=== PATIENT | female | born 1945 | race Caucasian/White ===

== ENCOUNTER → 2016-12-11 | Day surgery (SDC) | payer MEDICARE, OTHER ==
[~2016-12-11] MED LIST: ALLEGRA180 MG PO; ALLEGRA60 MG PO; ASPIRIN81 M1 PO; ATIVAN PO; CELEXA20 MG PO; CIPRO250 M1; CITALOPRAM HBR10 MG PO; COZAAR PO; ESZOPICLONE3 MG PO; FENOFIBRATE145 M1 PO; FERRO-TIME325 MG PO; HYDROCHLOROTHIA25 MG PO; LEVAQUIN750 MG PO; LIPITOR PO; LORTAB 5/500 TA1 TA1 PO; METFORMIN HCL500 M1 PO; MONTELUKAST SOD10 MG PO; NAMZARIC 28 MG1 EACH; PREDNISONE PO; PREDNISONE5 M1; PREVACID15 MG PO; PRILOSEC PO; PRILOSEC20 MG PO; SIMVASTATIN20 MG PO; SIMVASTATIN40 MG PO; SYMBICORT80 INH
--- NOTE | ~2016-12-11 | OR ---
Unit #: [id number] #: [id number] Patient: CHELSEY MCHUGH [id number] [address] [address] [id number] MR#: [id number] NAME: CHELSEY MCHUGH ROOM: Date of Procedure: 12/11/2016 Admission Date: 12/11/2016 Surgeon: Ben Hawthorne M.D. : 1945 Attending Physician: Ben Hawthorne M.D. Referring Physician: Ben Hawthorne M.D. OPERATIVE REPORT PRIMARY CARE PHYSICIAN Naye Meraz M.D. PREOPERATIVE DIAGNOSES Iron-deficiency anemia, anemia of chronic gastrointestinal blood loss. PROCEDURES PERFORMED Upper gastrointestinal endoscopy and biopsy as well as upper gastrointestinal endoscopy and argon plasma coagulation ablation. In addition, the patient will need a colonoscopy with argon plasma coagulation ablation. POSTOPERATIVE DIAGNOSES For upper endoscopy: 1. The patient had a single angiodysplasia or AVM, which was not actively bleeding in the third part of duodenum. This was ablated using argon plasma coagulation therapy. 2. Moderate prepyloric antral erosive gastritis. A biopsy was obtained from the antrum for CLOtest. 3. Distal grade 2 erosive esophagitis. 4. Distal esophageal mucosal ring. The latter was felt to be nonobstructing. 5. Small hiatus hernia. Biopsies were obtained from the deep descending duodenal folds to look for any evidence of partial villous atrophy or celiac disease. For colonoscopy: 1. 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 This was ablated using argon plasma coagulation therapy. 2. Mild diverticulosis. 3. Postsurgical changes of [id number] colocolic anastomosis in the area of the sigmoid colon. RECOMMENDATIONS The patient will be started on ferrous sulfate 325 mg p.o. daily. She will be followed up in the office in 4 months' time. SEDATION USED MAC. DESCRIPTION OF PROCEDURE Following detailed explanation of the potential risks and complications of Unit #: [id number] #: [id number] Patient: CHELSEY MCHUGH an upper endoscopy and a colonoscopy, namely perforation, bleeding, and complication related to sedation, the patient was brought to GI lab and laid in the left lateral decubitus position. Lubricated tip of the Olympus video upper endoscope was passed through the bite block into the proximal esophagus under direct vision. The entire esophageal mucosa was examined and the patient was noted to have grade 2 distal erosive esophagitis. In addition, a distal esophageal ring was noted. In addition, a small hiatus hernia was noted. The scope was then advanced into the gastric cavity and the latter was insufflated. Mucosa of the fundus, body, and antrum was examined and prepyloric antral erythema and erosions were noted. Pylorus was intubated with visualization of the normal duodenal bulb. In the third part of duodenum, a single angiodysplasia or vascular malformation was seen. This was not actively bleeding. I had a characteristic appearance. The angiodysplasia was ablated using argon plasma coagulation therapy at appropriate settings. In addition, biopsies were obtained from deep descending duodenal folds to look for any evidence of partial villous atrophy or celiac disease. A biopsy was obtained from the antrum for CLOtest. The scope was then withdrawn in the distal esophagus. Entire esophageal mucosa was examined all the way up to pharynx. No additional findings were noted. We then proceeded with a push enteroscopy and this was done way past the area of the upper gastrointestinal evaluation with upper endoscopy up to the proximal jejunum. No additional findings were noted. Essentially, no angiodysplasias were seen. The scope was then withdrawn. The examination table was then turned by 180 degrees and the patient was positioned for a colonoscopy. A digital rectal examination was performed, which was normal. Lubricated tip of the Olympus video colonoscope was inserted through the anus and advanced under direct vision. The scope was advanced past rectosigmoid into descending colon. A [id number] colocolic anastomosis was noted in the area of the sigmoid colon from previous surgery. Scant diverticula were also seen. The scope tip was then navigated all the way up to cecum with visualization of the ileocecal valve and the appendiceal orifice. Preparation was excellent with good visualization and photodocumentation was obtained. Successive segments of the colonic mucosa were examined upon withdrawal. A single angiodysplasia or AVM was seen in the cecum adjacent to appendiceal orifice. This had characteristic appearance. No bleeding or hemorrhoids were seen. The AVM was then ablated using argon plasma coagulation therapy. Excellent hemostasis was achieved and photodocumentation was obtained. No additional AVMs were seen. The patient did not have any polyps. Scant diverticula were noted as noted earlier. The scope was then withdrawn. The patient did not have any hemorrhoids at anal verge. She tolerated the procedure without any postprocedure complications. Dictated by.Berna. Nataly Abrams/jah TD: 12/11/2016 13:55 JOB #: [id number] CC: Naye Meraz M.D. Unit #: [id number] #: [id number] Patient: CHELSEY MCHUGH OPERATIVE REPORT Page 1 of 1 X Ben Hawthorne MD X PROCEDURE OPERATIVE NOTE
== END | disposition home or self-care (01) ==
LOC: COPS 05:55
DX: K29.80 Duodenitis without bleeding (principal); D50.0 Iron deficiency anemia secondary to blood loss (chronic); K31.819 Angiodysplasia of stomach and duodenum without bleeding; K29.70 Gastritis, unspecified, without bleeding; K20.9 Esophagitis, unspecified; K44.9 Diaphragmatic hernia without obstruction or gangrene; K22.2 Esophageal obstruction; K55.20 Angiodysplasia of colon without hemorrhage; K57.30 Diverticulosis of large intestine without perforation or abscess without bleeding; J44.9 Chronic obstructive pulmonary disease, unspecified; K21.9 Gastro-esophageal reflux disease without esophagitis; F17.210 Nicotine dependence, cigarettes, uncomplicated; N39.3 Stress incontinence (female) (male); Z90.49 Acquired absence of other specified parts of digestive tract; Z90.710 Acquired absence of both cervix and uterus; Z88.0 Allergy status to penicillin
CPT/HCPCS: 82947; 87077; 88305